=== PATIENT | female | born 1960 | race Caucasian/White ===

== ENCOUNTER 2020-08-29 10:04 | Outpatient (REF) | payer OTHER, SELFPAY | END 2020-08-29 10:05 | disposition home or self-care (01) | LOC: HO.HMGCLDS 10:04 | PROVIDERS: PCP Nurse Practitioner Family; Visit Provider Internal Medicine | DX: Z20.828 Contact with and (suspected) exposure to other viral communicable diseases (principal) | CPT/HCPCS: C9803; U0003 ==

== ENCOUNTER 2021-09-07 07:09 | Outpatient (REF) | payer OTHER, SELFPAY ==
[2021-09-07 07:48] LABS: COVID-19 Test Positive (Negative)
== END 2021-09-07 07:10 | disposition home or self-care (01) ==
LOC: HO.LAB 07:09
PROVIDERS: PCP Nurse Practitioner Family; Visit Provider Internal Medicine
DX: Z20.822 Contact with and (suspected) exposure to COVID-19 (principal)
CPT/HCPCS: 36415; 87635; C9803

== ENCOUNTER 2021-09-27 13:51 | Outpatient (REF) | payer OTHER, SELFPAY ==
--- NOTE | ~2021-09-27 | XR_ITS ---
EXAMINATION: XR CHEST CLINICAL INFORMATION: Dyspnea COMPARISON: None TECHNIQUE: 2 views of the chest were obtained. FINDINGS: The cardiac and mediastinal contours are normal. There are increased linear markings suggestive of scarring or subsegmental atelectasis. This is greatest in the right upper lobe. There is a 0.7 cm nodular density in the right upper lobe. This overlies the right posterior inferior sixth rib. It is uncertain whether this represents a nodule or superimposition of overlapping bony and vascular structures. The lungs are otherwise clear. The lungs appear well inflated. There is no pleural effusion or pneumothorax. There are degenerative changes of the spine. XR/XR chest 2V IMPRESSION: Well-inflated lungs. Increased linear markings suggestive of scarring or subsegmental atelectasis, greatest in the right upper lobe. Question right upper lobe nodule. Imaging follow-up recommended.
== END 2021-09-27 13:52 | disposition home or self-care (01) ==
LOC: HO.HMGCX 13:51
PROVIDERS: Visit Provider Physician Assistant Medical
DX: R06.09 Other forms of dyspnea (principal); U09.9 Post COVID-19 condition, unspecified
CPT/HCPCS: 71046

== ENCOUNTER → 2021-10-31 13:37 | Outpatient (BNVA) | payer OTHER, SELFPAY | PROVIDERS: PCP Nurse Practitioner Family; Visit Provider Hospitalist | DX: U09.9 Post COVID-19 condition, unspecified (principal); R06.09 Other forms of dyspnea; G47.33 Obstructive sleep apnea (adult) (pediatric) | CPT/HCPCS: 99202 ==

== ENCOUNTER 2021-11-11 10:12 | Outpatient (REF) | payer OTHER, SELFPAY ==
--- NOTE | ~2021-11-11 | XR_ITS ---
EXAMINATION: XR KNEE, RIGHT CLINICAL INFORMATION: M25.461 - Effusion, right knee COMPARISON: None TECHNIQUE: Four views of the right knee. FINDINGS: There is small to moderate suprapatellar effusion. Hoffa's fat pad appears normal. There is no fracture, dislocation, or destructive process. There are mild degenerative changes with spurring from the femoral condyles and tibial plateau. No focal joint narrowing or erosive change or chondrocalcinosis. Axial view patella shows no lateralization or tilting. XR/XR knee RT 4V IMPRESSION: 1. Mild to moderate suprapatellar effusion. 2. Marginal osteophytes. No focal joint narrowing or erosive change.
== END 2021-11-11 10:13 | disposition home or self-care (01) ==
LOC: HO.HMGCX 10:12
PROVIDERS: Visit Provider Physician Assistant
DX: M25.461 Effusion, right knee (principal)
CPT/HCPCS: 73564

== ENCOUNTER 2021-11-20 13:47 | Outpatient (REF) | payer OTHER, SELFPAY ==
--- NOTE | 2021-11-20 17:16 | PFT_ITS ---
Forced vital capacity is 82%, FEV1 90%, FEV1/FVC ratio is 85. [id number] is 113%. MVV 89%. All these values are normal. Patient did not want to have bronchodilator challenge. Lung volumes: Total lung capacity 85% and residual volume is 78%. Diffusion capacity 87%. CONCLUSION: The pulmonary function test shows all values within normal limits. No evidence of obstructive or restrictive pulmonary disorder. As noted above. The patient declined to have the bronchodilator challenge. MD HARSHAD Dunne/MODL / [id number] MTDD
== END 2021-11-20 13:48 | disposition home or self-care (01) ==
LOC: HO.RESP 13:47
PROVIDERS: PCP Nurse Practitioner Family; Visit Provider Hospitalist
DX: R06.00 Dyspnea, unspecified (principal)
CPT/HCPCS: 94010; 94727; 94729

== ENCOUNTER 2021-11-23 12:18 | Outpatient (REF) | payer OTHER, SELFPAY ==
--- NOTE | ~2021-11-23 | XR_ITS ---
EXAMINATION: XR KNEE AP STANDING CLINICAL INFORMATION: Pain in knee. COMPARISON: None TECHNIQUE: AP bilateral standing view of the knees was obtained. FINDINGS: There is mild spurring along the medial and lateral compartment right knee. The joint space is maintained normal otherwise. Suspect small loose body along the medial compartment left knee. No acute fracture or dislocation or soft tissue swelling. XR/XR knee standing BI IMPRESSION: Mild degenerative periapical spurring medial and lateral compartment right knee. Suspected loose body along the medial compartment right knee.
== END 2021-11-23 12:19 | disposition home or self-care (01) ==
LOC: HO.HOSX 12:18
PROVIDERS: Visit Provider Orthopaedic Surgery
DX: M17.11 Unilateral primary osteoarthritis, right knee (principal)
CPT/HCPCS: 73565; 99202

== ENCOUNTER 2021-12-11 13:51 | Outpatient (REF) | payer OTHER, SELFPAY ==
--- NOTE | ~2021-12-11 | XR_ITS ---
EXAMINATION: XR CHEST CLINICAL INFORMATION: Follow-up chest for nodular density right suprahilar region overlying posterior medial sixth rib. COMPARISON: Chest radiographs 09/27/2021. TECHNIQUE: 2 views of the chest were obtained. FINDINGS: The subtle density overlying confluence right costochondral junction and right posterior medial sixth rib is similar to prior exam. This may represent artifact from the superimposed bronchovascular markings in thoracic cage. This could be further assessed with apical lordotic view or CT chest noncontrast. The lungs are otherwise clear and there is no airspace consolidation or groundglass opacity or effusion. The heart is normal in size. The vascularity is normal. The hilar and mediastinal contours and bony structures are unremarkable. XR/XR chest 2V IMPRESSION: 1. Right suprahilar nodular density is similar to previous exam. This could represent artifact from superimposed bronchovascular markings and the costochondral junction. Further evaluation could be performed with either apical lordotic view or noncontrast CT chest. 2. Lungs otherwise clear. No infiltrate or effusion.
== END 2021-12-11 13:52 | disposition home or self-care (01) ==
LOC: HO.XRAY 13:51
PROVIDERS: PCP Nurse Practitioner Family; Visit Provider Hospitalist
DX: R06.00 Dyspnea, unspecified (principal); U09.9 Post COVID-19 condition, unspecified; G47.33 Obstructive sleep apnea (adult) (pediatric); Z79.899 Other long term (current) drug therapy
CPT/HCPCS: 71046; 99212

== ENCOUNTER 2021-12-22 09:12 | Outpatient (REF) | payer OTHER, SELFPAY ==
--- NOTE | ~2021-12-22 | XR_ITS ---
EXAMINATION: XR CHEST CLINICAL INFORMATION: Cough COMPARISON: Previous chest x-ray most recent 12/11/2021 TECHNIQUE: 2 views of the chest were obtained. FINDINGS: The cardiac and mediastinal contours are stable. There are increased markings in the right upper lung, greatest in the right suprahilar markings extending to the right first rib. This appears unchanged. The lungs are otherwise clear. There is no pleural effusion or pneumothorax. There are degenerative changes of the spine. XR/XR chest 2V IMPRESSION: Stable increased markings in the right upper lung from previous chest x-rays. Again, this could be better evaluated with chest CT scan if clinically indicated.
[2021-12-22 09:42] LABS: Binax Internal Control QC Valid; Binax Now Covid-19 Ag Negative (Negative)
== END 2021-12-22 09:13 | disposition home or self-care (01) ==
LOC: HO.HMGCX 09:12
PROVIDERS: PCP Nurse Practitioner Family; Visit Provider Physician Assistant Medical
DX: R05.9 Cough, unspecified (principal)
CPT/HCPCS: 71046

== ENCOUNTER 2022-03-18 09:21 | Emergency (ER) | payer OTHER, SELFPAY ==
--- NOTE | ~2022-03-18 | CT_ITS ---
EXAMINATION: CT ABDOMEN AND PELVIS WITHOUT CONTRAST CLINICAL INFORMATION: Right lower quadrant pain. Hematuria. COMPARISON: None TECHNIQUE: Multidetector volumetric imaging was performed from the superior aspect of the liver through the pubic symphysis. Sagittal and coronal reformatted images were obtained on the technologist's workstation. This CT examination was performed using dose optimization techniques as appropriate, variously including the following: *Automated exposure control *Adjustment of mA and/or kV according to patient size (this includes techniques or standardized protocols for targeted exams where dose is matched to indication/reason for exam; i.e. extremities or head) *Use of iterative reconstruction technique DLP: 499 mGy-cm FINDINGS: LUNG BASES: The visualized lung bases are unremarkable. LIVER, GALLBLADDER, AND BILIARY TREE: The liver is low in attenuation suggestive of fatty infiltration.. No focal hepatic lesion or biliary ductal dilatation is present. The gallbladder is unremarkable with no evidence of radiopaque gallstones, gallbladder wall thickening, or obvious pericholecystic inflammatory changes. PANCREAS: Unremarkable. SPLEEN: Unremarkable. ADRENAL GLANDS: Unremarkable. KIDNEYS AND URETERS: There are bilateral renal stones. Largest stone measures 5 mm in the upper pole of the left kidney. There is mild right hydronephrosis and ureteral dilatation from a 3 mm right distal ureteral stone. The more may be a adjacent more proximal right ureteral stones measuring 1 to 2 mm. There is mild stranding of the right perinephric fat. This probably related to obstruction/backflow of urine. Differential would include infection. There are small right renal cysts. No imaging follow-up needed. BLADDER: Unremarkable. GASTROINTESTINAL TRACT: The small and large bowel are unremarkable. The appendix is unremarkable. ABDOMINAL WALL: No significant hernia is appreciated. LYMPH NODES: Normal. VASCULAR: Unremarkable. PELVIC VISCERA: Unremarkable. OSSEOUS STRUCTURES: Unremarkable. CT/CT abdomen pelvis wo con IMPRESSION: Bilateral renal stones. Mild right hydronephrosis and ureteral dilatation from a 3 mm right distal ureteral stone and question 2 mm more proximal right ureteral stone. Mild stranding of the perinephric fat probably due to backflow of urine from obstruction. Differential would include infection. Clinical correlation recommended. Fleischner guidelines were followed.
[2022-03-18 09:33] VITALS: BP 158/95; PULSE 76; RESP 20; TEMP 36.7; O2SAT 100; BMI 25.2
[2022-03-18 10:32] LABS: MANUAL DIFF FLAG NO
[2022-03-18 10:35] LABS: Basophils Percent Auto 0.2 % (0-2); Hematocrit 45.1 % (37.0-47.0); Hemoglobin 14.1 g/dl (12.0-16.0); Imm Gran Abs Auto 0.06 X10*3/uL (0.00-0.03); Imm Gran Pct Auto 0.5 % (0.0-0.4); Lymphocytes Absolute Auto 1.1 X10*3/uL (1.2-4.9); Lymphocytes Percent Auto 9.6 % (20-40); Mean Corpuscular HGB Conc 31.3 g/dl (31.0-35.0); Mean Corpuscular Hemoglobin 27.3 pg (27.0-33.0); Mean Corpuscular Volume 87.2 fL (80.0-98.0); Mean Platelet Volume 11.2 fL (9.4-12.3); Monocytes Absolute Auto 0.2 X10*3/uL (0.1-1.2); Neutrophils Absolute Auto 10.3 x10*3/uL (2.0-8.3); Neutrophils Percent Auto 87.7 % (45-73); Platelet Count 269 X10*3/uL (160-400); Red Blood Count 5.17 X10*6/uL (4.20-5.50); Red Cell Distribution Width 14.2 % (11.0-16.0); White Blood Count 11.7 X10*3/uL (4.8-10.8)
[2022-03-18 10:44] LABS: Appearance Urine CLOUDY; Color Urine RED; Glucose Urine UA NEG (NEG); Leukocyte Esterase Urine NEG (NEG); Nitrite Urine NEG (NEG); Specific Gravity - Urine 1.015 (1.005-1.025); UACC Culture Trigger NO; Urine Blood 3+ (NEG); Urine Ketones NEG (NEG); Urine Protein 1+ MG/DL (NEG-TRACE)
[2022-03-18 10:47] VITALS: BP 139/83; PULSE 68; RESP 18; TEMP 36.8; O2SAT 98
[2022-03-18 10:47] LABS: Anion Gap 12 (12-20); Blood Urea Nitrogen 12 mg/dL (9-16); Calcium 9.6 mg/dL (8.4-10.2); Carbon Dioxide 28 mmol/L (22-29); Chloride 106 mmol/L (96-108); Creatinine Clr Calc Pharmacy 56.6; Estimated Glomerular Filt Rate > 60; Glucose Random 122 mg/dL (60-115); Potassium 5.4 mmol/L (3.3-5.1); Sodium 141 mmol/L (135-145)
[2022-03-18 10:59] LABS: Bacteria Urine TRACE /LPF; RBC Urine TNTC /HPF (0); Squamous Epithelial Cell Urine 1+ /LPF; WBC Urine 0 /HPF (0-4)
--- NOTE | 2022-03-18 11:13 | ECG_ITS ---
Test Reason : urogenital Blood Pressure : / mmHG Vent. Rate : 070 BPM Atrial Rate : 070 BPM P-R Int : 190 ms QRS Dur : 086 ms QT Int : 366 ms P-R-T Axes : 019 000 014 degrees QTc Int : 395 ms Normal sinus rhythm Cannot rule out Anterior infarct , age undetermined Abnormal ECG No previous ECGs available Referred By: Isela Lopez Electronically Signed By:Ronan Gutierrez
--- NOTE | 2022-03-18 11:30 | ED.FEMALEGU ---
HPI - Female Genitourinary General Chief complaint: Urogenital-Female Stated complaint: flank pain Time Seen by Provider: 03/18/22 10:58 Source: patient Mode of arrival: ambulatory Limitations: no limitations History of Present Illness HPI Narrative: Patient presents emergency department for evaluation of right abdominal/flank pain. She reports waking up overnight at 02:00 with pain, attempted to void but was only able to urinate a small amount. She woke up earlier this morning again, was able to void a large amount but continued to have this intermittent pain. Has associated nausea with vomiting x2. She reports that her urine is red in color. Denies fevers, chills, chest pain, shortness of breath, dysuria, urinary frequency/urgency, odorous urine, abnormal vaginal discharge, vaginal bleeding. MD elicited complaint: flank pain and difficulty urinating Onset (ago): hour(s) Location of symptoms: flank Severity: mild Severity scale (1-10): 2 Quality of pain: stabbing Consistency: intermittent Vaginal bleeding: none Urinary symptoms: Difficulty Urinating Exacerbating factors: none Relieving factors: none Associated symptoms: nausea and vomiting Treatment prior to arrival: none Related Data Previous Rx's Medication Instructions Recorded budesonide-formoterol HFA 160 2 puff inhalation BID 30 days 10/31/21 mcg-4.5 mcg/actuation aerosol #10.2 grams inhaler (Symbicort) diclofenac sodium 50 mg 50 mg PO BID PRN pain 14 days #28 11/11/21 tablet,delayed release tabs albuterol sulfate 90 mcg/actuation 2 puff inhalation Q4-6H PRN 12/22/21 aerosol inhaler (Ventolin HFA) shortness of breath or wheezing #8.5 grams azithromycin 250 mg tablet See Rx Instructions PO .COMPLEX #6 12/22/21 tabs benzonatate 100 mg capsule 100 mg PO BID-TID PRN cough #30 12/22/21 caps naproxen 500 mg tablet 500 mg PO BID PRN pain 7 days #14 03/18/22 tabs oxycodone 5 mg capsule 5 mg PO Q8H PRN pain #7 caps 03/18/22 tamsulosin 0.4 mg capsule 0.4 mg PO DAILY #7 caps 03/18/22 Allergies Allergy/AdvReac Type Severity Reaction Status Date / Time No Known Allergies Allergy Verified 12/22/21 08:21 Review of Systems Review of Systems: Constitutional : No Weight loss, No Fever, No Chills ENT/Mouth :? No sore throat, No Rhinorrhea Eyes: No Swelling, No Redness Cardiovascular : No Chest Pain, No SOB, No Edema Respiratory : No Cough, No Sputum, No Wheezing Gastrointestinal : Positive Nausea, Positive Vomiting, no Diarrhea, positive abdominal pain, No Hematochezia, No Melena Genitourinary : No Dysuria, No Urinary Frequency, No Hematuria, No Urgency? Musculoskeletal : No joint pain, No Myalgias, No Joint Swelling Skin : No Skin Lesions, No rash Neuro : No Weakness, No Numbness, No Dizziness, No Headache Psych : No Anxiety/Panic, No Depression Heme/Lymph: No Bruising, No Lymphadenopathy Endocrine : No Polyuria, No Polydipsia Yes all other systems are reviewed and are negative [facility] Past Medical History Attestation statement: The following information was validated with the patient. Source: old records reviewed Medical History Dyspnea KIRSTIN (obstructive sleep apnea) Pulmonary nodule Social History Social History Patient Tobacco Use Status: Never used Tobacco Use of substances other than those prescribed or required for medical reasons: No Any prior treatment program specific to substance use: No Advance Directives: Yes Advance Directives Information Provided: No Advance Directives on File: No Patient : No Current occupational status: employed Current occupation: [employer] Physical Exam Vital Signs: Vital Signs: Last Vital Signs Temp 98.4 F 03/18/22 14:17 Pulse 66 03/18/22 14:17 Resp 16 03/18/22 14:17 BP 126/77 03/18/22 14:17 Pulse Ox 97 03/18/22 14:17 O2 Del Method 03/18/22 14:17 BMI result Body Mass Index 25.2 Vital signs have been reviewed as normal and appeared to be correct. Blood pressure normal.? Heart rate normal.? Respiration rate normal. Temperature normal.? Oxygen saturation normal. Appearance: Alert.?Oriented to person, place and time. No acute distress.?Normal affect. Eyes: Pupils equal, round and reactive to light.? ENT: Pharynx normal.?? Neck: Normal inspection.? Neck supple.?? CVS: Heart sounds normal. Normal heart rate and rhythm.? Pulses normal.?? Respiratory: No respiratory distress.? Lung sounds clear to auscultation bilaterally?? Abdomen: Soft and non-tender. Normoactive bowel sounds. Mild right CVA tenderness. Rovsing sign negative, obturator's sign negative, psoas sign negative, no rebound tenderness. ? Skin: Skin warm and dry.? Normal skin color.? ? Extremities: No lower extremity edema.? Neuro: Moves all extremities spontaneously. Sensation intact bilaterally. No motor deficits. Ambulates with normal steady gait. Course Course Course Narrative: Patient is a 61-year-old female with a past medical history of pulmonary nodule, KIRSTIN, osteoarthritis presented to emergency department for evaluation of right flank pain with associated nausea and vomiting. At this time flank pain has overall improved, currently 2/10, was more severe earlier today. Difficulty voiding has subsided, she does however have hematuria. Will obtain CBC, CMP, urinalysis, CT of the abdomen and pelvis to exclude nephrolithiasis/hydronephrosis, or additional intra-abdominal pathology as a source for pain. Reevaluation(s) Reevaluation #1: CBC reveals a mild leukocytosis, 11.7 BMP is overall unremarkable, however noted hyperkalemia 5.4, not secondary to any medications, will administer 1 L normal saline IV, and repeat. EKG reveals no acute changes consistent with hyperkalemia, normal sinus rhythm. Urinalysis with hematuria no signs of infection. CT of the abdomen reveals bilateral renal stones with mild right hydronephrosis and ureteral dilation from 3mm distal ureteral stone and possible 2mm proximal stone. Time: 14:28 Reevaluation #2: Hyperkalemia resolved. Discussed plan of care for discharge home, outpatient follow-up with Urology, tamsulosin daily, naproxen twice daily as needed for pain, oxycodone for severe unrelieved pain with naproxen, discussed reasons that she should return back to the emergency department, patient verbalized understanding. She was discharged home in stable condition. Time: 17:10 [facility] - Female Genitourinary Medical Records Attestation: I reviewed the patient's medical records. Lab Data Attestation: I reviewed the patient's lab results. Result diagrams: 03/18/22 10:27 03/18/22 16:42 Labs: Lab Results 03/18/22 03/18/22 03/18/22 Range/Units 10: 10:27 10:27 WBC 11.7 H (4.8-10.8) X10*3/uL RBC 5.17 (4.20-5.50) X10*6/uL Hgb 14.1 (12.0-16.0) g/dl Hct 45.1 (37.0-47.0) % MCV 87.2 (80.0-98.0) fL MCH 27.3 (27.0-33.0) pg MCHC 31.3 (31.0-35.0) g/dl RDW 14.2 (11.0-16.0) % Plt Count 269 (160-400) X10*3/uL MPV 11.2 (9.4-12.3) fL Immature Gran % (Auto) 0.5 H (0.0-0.4) % Neut % (Auto) 87.7 H (45-73) % Lymph % (Auto) 9.6 L (20-40) % [place] % (Auto) 2.0 (2-11) % Eos % (Auto) 0.0 (0-4) % Baso % (Auto) 0.2 (0-2) % Lymph # (Auto) 1.1 L (1.2-4.9) X10*3/uL [place] # (Auto) 0.2 (0.1-1.2) X10*3/uL Eos # (Auto) 0.0 (0.0-0.4) X10*3/uL Baso # (Auto) 0.0 (0.0-0.2) X10*3/uL Abs Immat Gran (auto) 0.06 H (0.00-0.03) X10*3/uL Absolute Neuts (auto) 10.3 H (2.0-8.3) x10*3/uL Absolute Nucleated RBC 0.000 (0.0-0.012) X10*3/uL Nucleated RBC % (auto) 0.0 (0.0-0.2) /100WBC Sodium 141 (135-145) mmol/L Potassium 5.4 H (3.3-5.1) mmol/L Chloride 106 (96-108) mmol/L Carbon Dioxide 28 (22-29) mmol/L Anion Gap 12 (12-20) BUN 12 (9-16) mg/dL Creatinine 0.80 (0.5-1.4) mg/dL Estim Creat Clear Calc 56.6 Estimated GFR > 60 Random Glucose 122 H (60-115) mg/dL Calcium 9.6 (8.4-10.2) mg/dL Urine Color RED A Urine Appearance CLOUDY Urine pH 8.0 (5.0-8.0) Ur Specific [place] 1.015 (1.005-1.025) Urine Protein 1+ H (NEG-TRACE) MG/DL Urine Glucose (UA) NEG (NEG) MG/DL Urine Ketones NEG (NEG) MG/DL Urine Blood 3+ H (NEG) Urine Nitrite NEG (NEG) Ur Leukocyte Esterase NEG (NEG) Urine RBC TNTC H (0) /HPF Urine WBC 0 (0-4) /HPF Ur Squamous Epith Cells 1+ /LPF Urine Bacteria TRACE /LPF 03/18/22 Range/Units 16:42 WBC (4.8-10.8) X10*3/uL RBC (4.20-5.50) X10*6/uL Hgb (12.0-16.0) g/dl Hct (37.0-47.0) % MCV (80.0-98.0) fL MCH (27.0-33.0) pg MCHC (31.0-35.0) g/dl RDW (11.0-16.0) % Plt Count (160-400) X10*3/uL MPV (9.4-12.3) fL Immature Gran % (Auto) (0.0-0.4) % Neut % (Auto) (45-73) % Lymph % (Auto) (20-40) % [place] % (Auto) (2-11) % Eos % (Auto) (0-4) % Baso % (Auto) (0-2) % Lymph # (Auto) (1.2-4.9) X10*3/uL [place] # (Auto) (0.1-1.2) X10*3/uL Eos # (Auto) (0.0-0.4) X10*3/uL Baso # (Auto) (0.0-0.2) X10*3/uL Abs Immat Gran (auto) (0.00-0.03) X10*3/uL Absolute Neuts (auto) (2.0-8.3) x10*3/uL Absolute Nucleated RBC (0.0-0.012) X10*3/uL Nucleated RBC % (auto) (0.0-0.2) /100WBC Sodium (135-145) mmol/L Potassium 3.9 D (3.3-5.1) mmol/L Chloride (96-108) mmol/L Carbon Dioxide (22-29) mmol/L Anion Gap (12-20) BUN (9-16) mg/dL Creatinine (0.5-1.4) mg/dL Estim Creat Clear Calc Estimated GFR Random Glucose (60-115) mg/dL Calcium (8.4-10.2) mg/dL Urine Color Urine Appearance Urine pH (5.0-8.0) Ur Specific [place] (1.005-1.025) Urine Protein (NEG-TRACE) MG/DL Urine Glucose (UA) (NEG) MG/DL Urine Ketones (NEG) MG/DL Urine Blood (NEG) Urine Nitrite (NEG) Ur Leukocyte Esterase (NEG) Urine RBC (0) /HPF Urine WBC (0-4) /HPF Ur Squamous Epith Cells /LPF Urine Bacteria /LPF Imaging Data CT scan - abdomen: Radiologist's impression: CT/CT abdomen pelvis wo con IMPRESSION: Bilateral renal stones. Mild right hydronephrosis and ureteral dilatation from a 3 mm right distal ureteral stone and question 2 mm more proximal right ureteral stone. Mild stranding of the perinephric fat probably due to backflow of urine from obstruction. Differential would include infection. Clinical correlation recommended. ECG Data Attestation: I personally reviewed and interpreted this ECG as follows: ECG interpretation date: 03/18/22 Prior ECG tracings: not available for review Interpretation: Rate: 70 Rhythm:? Normal sinus rhythm [place]:? Normal Normal P waves.? Normal EUNICE.?? Normal QRS complex.?? ST T wave :??No ST elevation, no ST depression. qTC: 395 prior studies:? None available for review The study has been interpreted contemporaneously by me. Discharge Plan Discharge Clinical Impression: Nephrolithiasis, Renal colic Patient Disposition: Home, Self-Care Instructions: Kidney Stones (ED), Renal Colic (ED), How to Strain Your Urine (ED) Additional Instructions: The CT of your abdomen reveals kidney stones. Pain that you are experiencing and the blood in your urine is most consistent with passage of a kidney stones. Based on the CT scan there are stones in the ureter, there of an appropriate size that he should be able to pass them on your own. You have been given a prescription for tamsulosin to take once daily, and naproxen to take twice daily for pain. This is an NSAID, you should not take additional lpal-bhc-cujawfz medications such as ibuprofen/Motrin, Aleve, or aspirin while taking this medication. If the naproxen is not alleviating her pain you may try using oxycodone, this is an opiate/narcotic, it may be addictive, it may make you very drowsy, you should not drive drink alcohol for at least 8 hours after taking this medication. Please be sure to stay well hydrated, drink plenty of fluids, strain all urine. Please contact the urologist office tomorrow to schedule a follow-up appointment within 5 days. You may return to emergency department any new or worsening symptoms or concerns. Prescriptions: New naproxen 500 mg tablet 500 mg PO BID PRN (Reason: pain) 7 Days Qty: 14 0RF oxycodone 5 mg capsule 5 mg PO Q8H PRN (Reason: pain) Qty: 7 0RF Rx Instructions: Partial Fill upon patient request. tamsulosin 0.4 mg capsule 0.4 mg PO DAILY Qty: 7 0RF No Action diclofenac sodium 50 mg tablet,delayed release (DR/EC) 50 mg PO BID PRN (Reason: pain) 14 Days Qty: 28 0RF benzonatate 100 mg capsule 100 mg PO BID-TID PRN (Reason: cough) Qty: 30 0RF azithromycin 250 mg tablet See Rx Instructions PO .COMPLEX Qty: 6 0RF Rx Instructions: take 500 mg today (day 1), then 250 mg for 4 days (days 2-5) PO albuterol sulfate [Ventolin HFA] 90 mcg/actuation HFA aerosol inhaler 2 puff inhalation Q4-6H PRN (Reason: shortness of breath or wheezing) Qty: 8.5 0RF budesonide-formoterol [Symbicort] 160-4.5 mcg/actuation HFA aerosol inhaler 2 puff inhalation BID 30 Days Qty: 10.2 11RF Referrals: Dylan Kerns MD [Physician] - 5 days Interventions: ED Discharge Assessment Last Done: 03/18/22 17:19
[2022-03-18 12:10] VITALS: BP 128/86; PULSE 67; RESP 16; TEMP 36.9; O2SAT 97
[2022-03-18 14:17] VITALS: BP 126/77; PULSE 66; RESP 16; TEMP 36.9; O2SAT 97
[2022-03-18] MEDS: 0.9 % Sodium Chloride 1,000 ML 999 ML IV (14:53)
[2022-03-18 16:57] LABS: Potassium 3.9 mmol/L (3.3-5.1)
== END 2022-03-18 17:19 | disposition home or self-care (01) ==
PROVIDERS: Nurse Practitioner Family; Emergency Provider Emergency Medicine; PCP Nurse Practitioner Family
DX: N13.2 Hydronephrosis with renal and ureteral calculous obstruction (principal); E87.5 Hyperkalemia
CPT/HCPCS: 36415; 74176; 80048; 81001; 84132; 85025; 93005; 96360; 99284; 99285

== ENCOUNTER 2022-03-21 08:29 | Outpatient (REF) | payer OTHER, SELFPAY ==
[2022-03-21 10:58] LABS: MANUAL DIFF FLAG NO
[2022-03-21 11:05] LABS: Basophils Absolute Auto 0.1 X10*3/uL (0.0-0.2); Basophils Percent Auto 0.8 % (0-2); Eosinophils Absolute Auto 0.1 X10*3/uL (0.0-0.4); Eosinophils Percent Auto 0.8 % (0-4); Hematocrit 42.5 % (37.0-47.0); Hemoglobin 13.3 g/dl (12.0-16.0); Imm Gran Abs Auto 0.02 X10*3/uL (0.00-0.03); Imm Gran Pct Auto 0.3 % (0.0-0.4); Lymphocytes Absolute Auto 2.8 X10*3/uL (1.2-4.9); Lymphocytes Percent Auto 39.7 % (20-40); Mean Corpuscular HGB Conc 31.3 g/dl (31.0-35.0); Mean Corpuscular Hemoglobin 27.7 pg (27.0-33.0); Mean Corpuscular Volume 88.4 fL (80.0-98.0); Mean Platelet Volume 12.1 fL (9.4-12.3); Monocytes Absolute Auto 0.5 X10*3/uL (0.1-1.2); Monocytes Percent Auto 6.4 % (2-11); Neutrophils Absolute Auto 3.7 x10*3/uL (2.0-8.3); Platelet Count 263 X10*3/uL (160-400); Red Blood Count 4.81 X10*6/uL (4.20-5.50); Red Cell Distribution Width 14.5 % (11.0-16.0); White Blood Count 7.1 X10*3/uL (4.8-10.8)
[2022-03-21 11:19] LABS: Alanine Aminotransferase 22 U/L (0-31); Albumin Level 4.2 g/dL (3.5-5.0); Alkaline Phosphatase 78 U/L (39-117); Anion Gap 11 (12-20); Aspartate Amino Transferase 17 U/L (5-31); Bilirubin Total 0.3 mg/dL (0.0-1.0); Blood Urea Nitrogen 15 mg/dL (9-16); Calcium 9.6 mg/dL (8.4-10.2); Carbon Dioxide 28 mmol/L (22-29); Chloride 107 mmol/L (96-108); Cholesterol 254 mg/dL; Estimated Glomerular Filt Rate > 60; Glucose Fasting 97 mg/dL (60-99); HDL Cholesterol 50 mg/dL; LDL Cholesterol Calculated 178 mg/dl; Sodium 142 mmol/L (135-145); Total Protein 7.3 g/dL (6.5-8.0); Triglycerides 133 mg/dL
[2022-03-21 11:32] LABS: Appearance Urine CLOUDY; Color Urine YELLOW; Glucose Urine UA NEG (NEG); Leukocyte Esterase Urine 1+ (NEG); Nitrite Urine NEG (NEG); Specific Gravity - Urine 1.025 (1.005-1.025); UACC Culture Trigger YES; Urine Blood 3+ (NEG); Urine Ketones NEG (NEG); Urine Protein NEG (NEG-TRACE)
[2022-03-21 11:42] LABS: Vitamin D 25-OH Total 47.8 ng/mL (>30)
[2022-03-21 11:49] LABS: Squamous Epithelial Cell Urine 1+ /LPF
[2022-03-21 11:50] LABS: Bacteria Urine TRACE /LPF; Calcium Oxalate Crystals Urine 1+ /LPF; Mucus Urine 1+ /LPF
== END 2022-03-21 08:30 | disposition home or self-care (01) ==
LOC: HO.HMGCLDS 08:29
PROVIDERS: PCP Nurse Practitioner Family; Visit Provider Nurse Practitioner Family
DX: Z00.00 Encounter for general adult medical examination without abnormal findings (principal); Z78.0 Asymptomatic menopausal state
CPT/HCPCS: 36415; 80053; 80061; 81001; 82306; 84443; 85025; 87086

== ENCOUNTER 2022-03-30 14:41 | Outpatient (REF) | payer OTHER, SELFPAY ==
--- NOTE | ~2022-03-30 | MM_ITS ---
EXAMINATION: MM SCREENING DIGITAL BREAST TOMOSYNTHESIS, BILATERAL CLINICAL INFORMATION: Screening. Asymptomatic. The lifetime risk of breast cancer based on the Tyrer-Cuzick Model is 14%. COMPARISON: Outside mammography: 11/30/2017, 11/16/2016, 08/27/2015 ([place]). TECHNIQUE: Digital breast tomosynthesis is performed in both the craniocaudal and mediolateral oblique views along with computer-aided detection (CAD). Synthesized 2D images are generated from the tomosynthesis. FINDINGS: The breasts are almost entirely fatty (ACR BI-RADS breast composition Category a). Background stromal markings are stable. No developing density. The axilla and skin contours are unremarkable. There are no significant masses, abnormal calcifications, or other abnormalities. MM/MM tomosynthesis screening BI IMPRESSION: No mammographic evidence of malignancy. ASSESSMENT: BI-RADS 1: Negative RECOMMENDATION: Routine annual mammography screening. This patient's information was entered into a reminder system with a target due date for their next mammogram.
--- NOTE | ~2022-03-30 | MM_ITS ---
EXAMINATION: BONE DENSITOMETRY CLINICAL INDICATION: Menopause. COMPARISON: This is the patient's baseline examination. TECHNIQUE: Using a [employer] DXA System (software version: 13.1) manufactured by [employer], dual-energy x-ray absorptiometry was performed of the lumbar spine and left hip. The images are of good technical quality. Summary results are attached. FINDINGS: AP SPINE L1-L4: BMD 1.082 g/cm2, Z-score 0.5, T-score -0.8, normal. LEFT FEMUR, NECK: BMD 0.747 g/cm2, Z-score -0.8, T-score -2.1, osteopenia. LEFT FEMUR, TOTAL: BMD 0.939 g/cm2, Z-score 0.5, T-score -0.5, normal. IDENTIFIED RISK FACTORS: Early menopause, secondary osteoporosis. HISTORY OF FRACTURE: None listed. MEDICATIONS: Vitamin D. MM/XR DEXA axial skeleton IMPRESSION: 1. DIAGNOSIS: Osteopenia based on the lowest T-score value of -2.1 in the femoral neck applying World Health Organization criteria. 2. 10-YEAR FRACTURE RISK PREDICTION, FRAX: Major osteoporotic fracture (clinical spine, forearm, hip or shoulder) 10.2%. Hip fracture 1.4%. 3. Treatment Recommendations: NOF guidelines recommend consideration for treatment in postmenopausal women and men age 50 and older presenting with the following: -A hip or vertebral (clinical or morphometric) fracture. -T-score less than or equal to -2.5 at the femoral neck or spine after appropriate evaluation to exclude secondary causes. -Low bone mass at the hip or spine and a 10-year fracture probability by FRAX of greater than or equal to 3% for hip fracture or greater than or equal to 20% for major osteoporotic fracture based on the [place] adapted WHO algorithm. 4. Other Recommendations: All treatment decisions require clinical judgment and consideration of individual patient factors, including patient preferences, comorbidities, previous drug use, risk factors not captured in the FRAX model (e.g. frailty, falls, vitamin D deficiency, increased bone turnover, interval significant decline in bone density) and possible under or overestimation of fracture risk by FRAX. Additional medical evaluation for secondary cause of low bone mineral density may be appropriate. FUTURE SCAN RECOMMENDATION: People with diagnosed cases of osteoporosis or at high risk for fracture should have regular bone mineral density tests. For patients eligible for Medicare, routine testing is allowed once every 2 years. The testing frequency can be increased to one year for patients who have rapidly progressing disease, those who are receiving or discontinuing medical therapy to restore bone mass, or have additional risk factors.
== END 2022-03-30 14:42 | disposition home or self-care (01) ==
LOC: HO.MAMMO 14:41
PROVIDERS: Visit Provider Nurse Practitioner Family
DX: Z12.31 Encounter for screening mammogram for malignant neoplasm of breast (principal); Z13.820 Encounter for screening for osteoporosis; Z78.0 Asymptomatic menopausal state
CPT/HCPCS: 77063; 77067; 77080

== ENCOUNTER → 2022-05-08 10:47 | Outpatient (BNVA) | payer OTHER, SELFPAY | PROVIDERS: PCP Nurse Practitioner Family | DX: N20.0 Calculus of kidney (principal) | CPT/HCPCS: 99202 ==

== ENCOUNTER 2022-05-28 08:48 | Outpatient (REF) | payer OTHER, SELFPAY ==
[2022-05-28 11:19] LABS: MANUAL DIFF FLAG NO
[2022-05-28 11:36] LABS: Basophils Percent Auto 0.6 % (0-2); Eosinophils Absolute Auto 0.1 X10*3/uL (0.0-0.4); Eosinophils Percent Auto 1.2 % (0-4); Hematocrit 41.2 % (37.0-47.0); Imm Gran Abs Auto 0.02 X10*3/uL (0.00-0.03); Imm Gran Pct Auto 0.3 % (0.0-0.4); Lymphocytes Absolute Auto 2.4 X10*3/uL (1.2-4.9); Lymphocytes Percent Auto 37.6 % (20-40); Mean Corpuscular HGB Conc 31.6 g/dl (31.0-35.0); Mean Corpuscular Volume 88.6 fL (80.0-98.0); Mean Platelet Volume 12.2 fL (9.4-12.3); Monocytes Absolute Auto 0.5 X10*3/uL (0.1-1.2); Neutrophils Absolute Auto 3.4 x10*3/uL (2.0-8.3); Neutrophils Percent Auto 53.3 % (45-73); Platelet Count 234 X10*3/uL (160-400); Red Blood Count 4.65 X10*6/uL (4.20-5.50); Red Cell Distribution Width 14.1 % (11.0-16.0); White Blood Count 6.5 X10*3/uL (4.8-10.8)
[2022-05-28 11:38] LABS: Appearance Urine Cloudy; Color Urine Yellow; Glucose Urine UA Negative (Negative); Leukocyte Esterase Urine Trace (Negative); Nitrite Urine Negative (Negative); Urine Blood Negative (Negative); Urine Ketones Negative (Negative); Urine Protein Negative (Neg-Trace)
[2022-05-28 11:42] LABS: Bacteria Urine 2+ (None Seen); Hyaline Casts Urine 0-2 /LPF (0-2); RBC Urine 0-2 /HPF (0-2); UACC Culture Trigger YES
[2022-05-28 11:57] LABS: Alanine Aminotransferase 28 U/L (0-31); Alkaline Phosphatase 78 U/L (39-117); Anion Gap 13 (12-20); Aspartate Amino Transferase 19 U/L (5-31); Bilirubin Total 0.4 mg/dL (0.0-1.0); Blood Urea Nitrogen 15 mg/dL (9-16); Calcium 8.9 mg/dL (8.4-10.2); Carbon Dioxide 27 mmol/L (22-29); Chloride 106 mmol/L (96-108); Cholesterol 251 mg/dL; Estimated Glomerular Filt Rate > 60; Glucose Fasting 97 mg/dL (60-99); HDL Cholesterol 48 mg/dL; LDL Cholesterol Calculated 164 mg/dl; Potassium 4.2 mmol/L (3.3-5.1); Sodium 142 mmol/L (135-145); Total Protein 6.9 g/dL (6.5-8.0); Triglycerides 196 mg/dL
[2022-05-28 12:19] LABS: TSH reflex Free T4 1.69 uIU/mL (0.32-4.0)
[2022-05-30 22:52] LABS: TS Negative Control Passed; TS Panel A 1; TS Panel B 2; TS Positive Control Passed; TSpotTB Negative (Negative)
== END 2022-05-28 08:49 | disposition home or self-care (01) ==
LOC: HO.HMGCLDS 08:48
PROVIDERS: PCP Nurse Practitioner Family; Visit Provider Nurse Practitioner Family
DX: E78.5 Hyperlipidemia, unspecified (principal); N20.0 Calculus of kidney; Z11.1 Encounter for screening for respiratory tuberculosis
CPT/HCPCS: 36415; 80053; 80061; 81001; 84443; 85025; 86481; 87086

== ENCOUNTER 2022-07-19 09:43 | Outpatient (REF) | payer OTHER, SELFPAY ==
[2022-07-19 15:56] LABS: CT PCR NOT DETECTED (Not Detect.); NG PCR NOT DETECTED (Not Detect.)
== END 2022-07-19 09:44 | disposition home or self-care (01) ==
LOC: HO.LNP 09:43
PROVIDERS: Visit Provider Advanced Practice Midwife
DX: Z11.3 Encounter for screening for infections with a predominantly sexual mode of transmission (principal)
CPT/HCPCS: 87491; 87591

== ENCOUNTER 2022-08-24 11:45 | Outpatient (REF) | payer OTHER, SELFPAY ==
--- NOTE | ~2022-08-24 | US_ITS ---
EXAMINATION: US RETROPERITONEAL LIMITED (RENAL ONLY) CLINICAL INFORMATION: Calculus of kidney. COMPARISON: CT abdomen and pelvis 03/18/2022. TECHNIQUE: Real-time imaging of the kidneys. FINDINGS: RIGHT KIDNEY: 10.6 x 4.7 x 5.5 cm (SAG x AP x TRV). The kidney is normal in size, contour, and echogenicity. Renal cortical thickness is normal. No hydronephrosis. At the upper pole, a 3 mm nonobstructing calculus is seen. At the interpolar aspect, 2 mm and 7 mm nonobstructing calculi are seen. At the lower pole, 4 mm and 4 mm nonobstructing calculi are seen. At the interpolar aspect, an 8 mm simple cyst is seen. At the lower pole, 1.9 x 1.4 x 1.6 cm and 0.6 x 0.8 x 0.6 cm mildly complex cysts are seen, with fine septations. These show no mural nodularity or associated color Doppler flow. LEFT KIDNEY: 10.7 x 4.7 x 5.4 cm (SAG x AP x TRV). The kidney is normal in size, contour, and echogenicity. Renal cortical thickness is normal. No hydronephrosis. At the interpolar aspect, 3 mm and 3 mm nonobstructing calculi are seen. At the lower pole, 3 mm and 5 mm nonobstructing calculi are seen. At the lower pole, a 7 mm in maximal diameter anechoic, simple cyst is seen. US/US renal BI IMPRESSION: 1. There are multiple nonobstructing bilateral renal calculi, as detailed. No hydronephrosis is seen bilaterally. 2. There are bilateral renal cysts, 2 at the lower pole of the right kidney mildly complex, with fine septations. If relevant to patient management, these can be further evaluated with CT (renal mass protocol, with intravenous contrast).
== END 2022-08-24 11:46 | disposition home or self-care (01) ==
LOC: HO.HMGCX 11:45
PROVIDERS: PCP Nurse Practitioner Family
DX: N20.0 Calculus of kidney (principal)
CPT/HCPCS: 76775

== ENCOUNTER 2022-08-25 06:51 | Outpatient (REF) | payer OTHER, SELFPAY ==
[2022-08-25 11:32] LABS: Alanine Aminotransferase 31 U/L (0-31); Albumin Level 4.1 g/dL (3.5-5.0); Alkaline Phosphatase 87 U/L (39-117); Anion Gap 14 (12-20); Aspartate Amino Transferase 22 U/L (5-31); Bilirubin Total 0.3 mg/dL (0.0-1.0); Blood Urea Nitrogen 13 mg/dL (9-16); Calcium 8.9 mg/dL (8.4-10.2); Carbon Dioxide 27 mmol/L (22-29); Chloride 106 mmol/L (96-108); Cholesterol 268 mg/dL; Estimated Glomerular Filt Rate > 60; Glucose Fasting 102 mg/dL (60-99); HDL Cholesterol 51 mg/dL; LDL Cholesterol Calculated 196 mg/dl; Potassium 4.1 mmol/L (3.3-5.1); Sodium 143 mmol/L (135-145); Total Protein 7.2 g/dL (6.5-8.0); Triglycerides 107 mg/dL
[2022-08-27 05:15] LABS: HBS Num1 154.42 mIU/mL (0-7.99); HBsAGNum1 0.25 S/CO (0.00-0.99); Hepatitis B Core Antibody Nonreactive (Nonreactive); Hepatitis B Surface Antigen Negative (Negative); ~HepC Num1 0.68 S/CO (0.00-0.79); ~Hepatitis B Surface Antibody REACTIVE (Nonreactive); ~Hepatitis C Antibody Nonreactive (Nonreactive)
[2022-08-27 21:16] LABS: Rubeola IgG (Measles) <13.50 AU/mL
[2022-08-29 04:48] LABS: Hepatitis A Antibody IgM 0.15 Index (0-0.79); ~Hepatitis A Antibody IgM Nonreactive (Nonreactive)
== END 2022-08-25 06:52 | disposition home or self-care (01) ==
LOC: HO.HMGCLDS 06:51
PROVIDERS: PCP Nurse Practitioner Family; Visit Provider Nurse Practitioner Family
DX: Z01.84 Encounter for antibody response examination (principal); E78.5 Hyperlipidemia, unspecified; Z28.39 Other underimmunization status
CPT/HCPCS: 36415; 80053; 80061; 86704; 86706; 86709; 86735; 86762; 86765; 86787; 86803; 87340

== ENCOUNTER 2023-03-26 07:15 | Outpatient (REF) | payer OTHER, SELFPAY ==
[2023-03-26 12:24] LABS: Alanine Aminotransferase 27 U/L (0-31); Albumin Level 3.9 g/dL (3.5-5.0); Alkaline Phosphatase 75 U/L (39-117); Anion Gap 11 (12-20); Aspartate Amino Transferase 21 U/L (5-31); Bilirubin Total 0.5 mg/dL (0.0-1.0); Blood Urea Nitrogen 16 mg/dL (9-16); Calcium 9.2 mg/dL (8.4-10.2); Carbon Dioxide 29 mmol/L (22-29); Chloride 105 mmol/L (96-108); Cholesterol 244 mg/dL; Estimated Glomerular Filt Rate > 60; Glucose Fasting 96 mg/dL (60-99); HDL Cholesterol 44 mg/dL; LDL Cholesterol Calculated 162 mg/dl; Potassium 4.1 mmol/L (3.3-5.1); Sodium 141 mmol/L (135-145); Total Protein 7.2 g/dL (6.5-8.0); Triglycerides 191 mg/dL
[2023-03-28 15:28] LABS: TS Negative Control Passed; TS Panel A 2; TS Panel B 2; TS Positive Control Passed; TSpotTB Negative (Negative)
== END 2023-03-26 07:16 | disposition home or self-care (01) ==
LOC: HO.HMGCLDS 07:15
PROVIDERS: PCP Nurse Practitioner Family; Visit Provider Nurse Practitioner Family
DX: Z11.1 Encounter for screening for respiratory tuberculosis (principal); E78.5 Hyperlipidemia, unspecified; Z28.39 Other underimmunization status
CPT/HCPCS: 36415; 80053; 80061; 86481

== ENCOUNTER 2023-04-04 11:56 | Outpatient (REF) | payer OTHER, SELFPAY ==
--- NOTE | ~2023-04-04 | MM_ITS ---
EXAMINATION: MM SCREENING DIGITAL BREAST TOMOSYNTHESIS, BILATERAL CLINICAL INFORMATION: Screening. Asymptomatic. The lifetime risk of breast cancer based on the Tyrer-Cuzick Model is 13.1%. COMPARISON: Mammography: This study is compared with the prior mammograms dating back to 2017. TECHNIQUE: Digital breast tomosynthesis is performed in both the craniocaudal and mediolateral oblique views along with computer-aided detection (CAD). Synthesized 2D images are generated from the tomosynthesis. FINDINGS: The breasts are almost entirely fatty (ACR BI-RADS breast composition Category a). There are no significant masses, abnormal calcifications, or other abnormalities. MM/MM tomosynthesis screening BI IMPRESSION: No mammographic evidence of malignancy. ASSESSMENT: BI-RADS BI-RADS 1 - Negative RECOMMENDATION: Routine annual mammography screening. 1 year F/U This patient's information was entered into a reminder system with a target due date for their next mammogram.
== END 2023-04-04 11:57 | disposition home or self-care (01) ==
LOC: HO.MAMMO 11:56
PROVIDERS: PCP Nurse Practitioner Family; Visit Provider Nurse Practitioner Family
DX: Z12.31 Encounter for screening mammogram for malignant neoplasm of breast (principal)
CPT/HCPCS: 77063; 77067

== ENCOUNTER → 2023-04-04 12:00 | Outpatient (BNV) | payer OTHER, SELFPAY | PROVIDERS: PCP Nurse Practitioner Family; Visit Provider Radiology Diagnostic Radiology | DX: Z12.31 Encounter for screening mammogram for malignant neoplasm of breast (principal) | CPT/HCPCS: 77063; 77067 ==

== ENCOUNTER 2023-04-22 14:45 | Outpatient (AMB) | payer OTHER, SELFPAY ==
--- NOTE | 2023-04-22 15:03 | AM.OFFWIN_ITS ---
Intake Vital Signs 04/22/23 15:04 Height 4 ft 11 in BP 122/78 Blood Pressure Location Lt brachial Position Sitting Pulse 78 Pulse Source Pulse Oximeter Temp 98.0 F Temp Source Temporal Artery Scan Pulse Oximetry (%) 98 Intake Visit Reasons: EP, Insect Bite Intake Note: pt is here for c/o possible insect bite on chest Patient Tobacco Use Status: Never used Tobacco Allergies No Known Allergies Allergy (Verified 04/22/23 15:03) Medication List - Last Reconciled 04/26/23 by Mo Kowalski MD albuterol sulfate 90 mcg/actuation (Ventolin HFA) 2 puffs inhalation Q4-6H PRN budesonide-formoterol 160-4.5 mcg/actuation (Symbicort) 2 puffs inhalation BID 30 days calcium carbonate-vitamin D3 600 mg-10 mcg (400 unit) (Calcium 600 with Vitamin D3) 1 tab PO BID 30 days hydrocortisone 2.5% 1 appl topical BID PRN ketoconazole 2% 1 appl topical DAILY prednisone 60 mg (3 x 20 mg) PO DAILY rosuvastatin 40 mg PO DAILY valacyclovir 2,000 mg (2 x 1 gram) PO ONCE PRN 1 day Do you need a note to return to daycare/school/sports/work: No HPI EP, Insect Bite HPI Details 62-year-old female presents to the office for a sick visit. Patient has a rash on the chest. She believes she was bitten by an insect. Dalal swelling and pain. [facility] Medical History Dyspnea KIRSTIN (obstructive sleep apnea) Pulmonary nodule Renal calculi Surgical History H/O breast biopsy Family History Daughter No problems noted. 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 Assessment & Plan Assessment & Plan (1) Insect bite (nonvenomous) of abdominal wall, initial encounter: Code(s): S30.861A - Insect bite (nonvenomous) of abdominal wall, initial encounter; W57.XXXA - Bitten or stung by nonvenomous insect and other nonvenomous arthropods, initial encounter Plan: Prednisone called in. Apply cortisone cream. If symptoms do not improve to follow-up here. Medications: New prednisone 60 mg (3 x 20 mg) PO DAILY 9 tabs 0RF hydrocortisone 2.5% 1 appl topical BID PRN 20 grams 0RF skin irritation Coding Level of Care Code Est Pt Level 3 (16069) Diagnoses Insect bite (nonvenomous) of abdominal wall, initial encounter S30.861A; W57.XXXA
[2023-04-22 15:04] VITALS: BP 122/78; PULSE 78; TEMP 36.7; O2SAT 98
== END 2023-04-22 16:11 | disposition home or self-care (01) ==
PROVIDERS: PCP Nurse Practitioner Family; Visit Provider Internal Medicine
DX: S30.861A Insect bite (nonvenomous) of abdominal wall, initial encounter (principal); W57.XXXA Bitten or stung by nonvenomous insect and other nonvenomous arthropods, initial encounter
CPT/HCPCS: 99213

== ENCOUNTER 2023-06-27 07:16 | Outpatient (REF) | payer OTHER, SELFPAY ==
[2023-06-27 11:40] LABS: MANUAL DIFF FLAG NO
[2023-06-27 11:48] LABS: Basophils Percent Auto 0.6 % (0-2); Eosinophils Absolute Auto 0.1 X10*3/uL (0.0-0.4); Eosinophils Percent Auto 1.3 % (0-4); Hematocrit 44.5 % (37.0-47.0); Hemoglobin 13.8 g/dl (12.0-16.0); Imm Gran Abs Auto 0.01 X10*3/uL (0.00-0.03); Imm Gran Pct Auto 0.1 % (0.0-0.4); Lymphocytes Absolute Auto 3.4 X10*3/uL (1.2-4.9); Lymphocytes Percent Auto 47.1 % (20-40); Mean Corpuscular Hemoglobin 27.3 pg (27.0-33.0); Mean Corpuscular Volume 88.1 fL (80.0-98.0); Mean Platelet Volume 12.1 fL (9.4-12.3); Monocytes Absolute Auto 0.4 X10*3/uL (0.1-1.2); Neutrophils Absolute Auto 3.2 x10*3/uL (2.0-8.3); Neutrophils Percent Auto 44.9 % (45-73); Platelet Count 266 X10*3/uL (160-400); Red Blood Count 5.05 X10*6/uL (4.20-5.50); Red Cell Distribution Width 14.2 % (11.0-16.0); White Blood Count 7.1 X10*3/uL (4.8-10.8)
[2023-06-27 12:09] LABS: Appearance Urine Clear; Color Urine Yellow; Glucose Urine UA Negative (Negative); Leukocyte Esterase Urine Trace (Negative); Nitrite Urine Negative (Negative); Specific Gravity - Urine 1.025 (1.005-1.025); UMIC TRIGGER UACC YES; Urine Blood Negative (Negative); Urine Ketones Negative (Negative); Urine Protein Negative (Neg-Trace)
[2023-06-27 12:12] LABS: Bacteria Urine 1+ (None Seen); Hyaline Casts Urine 0-2 /LPF (0-2); RBC Urine 0-2 /HPF (0-2); WBC Urine 0-5 /HPF (0-5)
[2023-06-27 12:22] LABS: Alanine Aminotransferase 35 U/L (0-31); Alkaline Phosphatase 76 U/L (39-117); Anion Gap 12 (12-20); Aspartate Amino Transferase 26 U/L (5-31); Bilirubin Total 0.3 mg/dL (0.0-1.0); Blood Urea Nitrogen 16 mg/dL (9-16); Calcium 9.2 mg/dL (8.4-10.2); Carbon Dioxide 26 mmol/L (22-29); Chloride 107 mmol/L (96-108); Cholesterol 251 mg/dL (<200); Estimated Glomerular Filt Rate > 60; Glucose Fasting 100 mg/dL (60-99); HDL Cholesterol 48 mg/dL (>40); LDL Cholesterol Calculated 176 mg/dL (<100); Potassium 4.2 mmol/L (3.3-5.1); Sodium 141 mmol/L (135-145); TSH reflex Free T4 3.25 uIU/mL (0.32-4.0); Total Protein 7.3 g/dL (6.5-8.0); Triglycerides 139 mg/dL (<150)
[2023-06-27 12:51] LABS: Erythrocyte Sedimentation Rate 7 MM/HR (0-20)
[2023-07-03 08:38] LABS: Transglutaminase IgA <1.0 U/mL
== END 2023-06-27 07:17 | disposition home or self-care (01) ==
LOC: HO.HMGCLDS 07:16
PROVIDERS: PCP Nurse Practitioner Family; Visit Provider Nurse Practitioner Family
DX: E78.5 Hyperlipidemia, unspecified (principal); L65.9 Nonscarring hair loss, unspecified; R19.5 Other fecal abnormalities
CPT/HCPCS: 36415; 80053; 80061; 81001; 81003; 84443; 85025; 85652; 86140; 86364

== ENCOUNTER 2023-06-28 07:34 | Outpatient (REF) | payer OTHER, SELFPAY ==
[2023-06-28 12:29] LABS: HBS Num1 130.03 mIU/mL (0-7.99); HBc Num1 0.22 S/CO (0.00-0.79); HBsAGNum1 0.39 S/CO (0.00-0.99); Hepatitis A Antibody IgM 0.15 Index (0-0.79); Hepatitis B Core Antibody Nonreactive (Nonreactive); Hepatitis B Surface Antigen Negative (Negative); ~HepC Num1 0.78 S/CO (0.00-0.79); ~Hepatitis A Antibody IgM Nonreactive (Nonreactive); ~Hepatitis B Surface Antibody REACTIVE (Nonreactive); ~Hepatitis C Antibody Nonreactive (Nonreactive)
[2023-06-30 22:28] LABS: TS Negative Control Passed; TS Panel A 0; TS Panel B 2; TS Positive Control Passed; TSpotTB Negative (Negative)
[2023-07-01 17:25] LABS: Rubeola IgG (Measles) <13.50 AU/mL
== END 2023-06-28 07:35 | disposition home or self-care (01) ==
LOC: HO.HMGCLDS 07:34
PROVIDERS: PCP Nurse Practitioner Family; Visit Provider Nurse Practitioner Family
DX: Z01.84 Encounter for antibody response examination (principal); Z11.1 Encounter for screening for respiratory tuberculosis; Z28.39 Other underimmunization status
CPT/HCPCS: 36415; 86481; 86704; 86706; 86709; 86735; 86762; 86765; 86787; 86803; 87340

== ENCOUNTER 2023-06-28 08:05 | Outpatient (AMB) | payer OTHER, SELFPAY ==
--- NOTE | 2023-06-28 08:08 | MHC.OFFWIV ---
Intake Vital Signs 06/28/23 08:10 Height 4 ft 11 in Weight 154 lb BMI 31.1 BP 124/82 Blood Pressure Location Rt brachial Position Sitting Pulse 78 Pulse Source Pulse Oximeter Pulse Oximetry (%) 98 Oxygen Delivery Method Room Air Intake Visit Reasons: EST/rash on right arm Intake Note: Patient here for rash on right arm that comes and goes for about a couple weeks. She states she doesnt go to bed with or wake up with it but happens throughout the day and wont last all day. Patient Tobacco Use Status: Never used Tobacco Allergies No Known Allergies Allergy (Verified 06/28/23 08:13) Do you need a note to return to daycare/school/sports/work: No HPI HPI Comments History of Present Illness Details This is a 62-year-old female who presents to the office today for sick visit. Patient complaining of intermittent rash to the right arm for the past several weeks. She noticed a pruritic rash to her right arm that appears to be intermittent in nature. She states she does not wake up with a rash but it seems to come on around 8-9 a.m. and then resolves priort to bedtime. She does report using a new laundry detergent prior to the onset of the rash. She occasionally gets a similar rash on her thighs. She denies any chest tightness, shortness of breath, or wheezing. She denies any throat swelling or trouble swallowing. [facility] Medical History Dyspnea KIRSTIN (obstructive sleep apnea) Pulmonary nodule Renal calculi Surgical History H/O breast biopsy Family History Daughter No problems noted. 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 Sexual orientation: Straight/Heterosexual Gender identity: Female Cognitive needs: No Hearing needs: No Vision needs: Yes Review of Systems Const All systems reviewed & are unremarkable except as noted in HPI and below Reports no additional complaints Eyes Reports no additional complaints ENT Reports no additional complaints Card Reports no additional complaints Resp Reports no additional complaints GI Reports no additional complaints Reports no additional complaints Musc Reports no additional complaints Skin/Breast Reports system reviewed and no additional complaints, except as documented Neuro Reports no additional complaints Psych Reports no additional complaints Endo Reports no additional complaints Ko/Lymph Reports no additional complaints Aller/Immun Reports no additional complaints Physical Exam Vital Signs: Last Vital Signs Pulse 78 06/28/23 08:10 BP 124/82 06/28/23 08:10 Pulse Ox 98 06/28/23 08:10 Oxygen Delivery Method Room Air 06/28/23 08:10 BMI result Body Mass Index 31.1 Const Other: Vital signs reviewed. Constitutional: Non-toxic appearing. No acute distress. Well-developed and well-nourished. HEENT: Normocephalic and atraumatic. Moist mucous membranes. No pharyngeal erythema or exudates. PERRL/EOMI. No conjunctival injection. Skin: Warm and dry. Several patches of a maculopapular erythematous rash located on right arm. There is another area of an erythematous maculopapular rash on the left arm. Neck: Full and painless range of motion. No cervical lymphadenopathy. Cardio: Regular rate and rhythm. No murmurs, gallops, or rubs. No lower extremity edema. No JVD. Pulmonary: No respiratory distress. No accessory muscle usage. Clear to auscultation bilaterally without wheezing, crackles, or rhonchi. Gastrointestinal: Soft, nontender, and nondistended in all 4 quadrants. Normoactive bowel sounds in all 4 quadrants. Genitourinary: No CVA tenderness. Musculoskeletal: Normal range of motion in joints throughout the body. No deformity or other signs of injury. Neuro: Alert and oriented x4. Cranial nerves 2-12 grossly intact. No focal deficits appreciated. Psych: Normal mood and affect. Assessment & Plan Assessment & Plan (1) Contact dermatitis: Code(s): L25.9 - Unspecified contact dermatitis, unspecified cause Plan 62-year-old female presenting to the office complaining of a pruritic rash to her right arm, left arm, and upper thighs in the setting of a new laundry detergent. On physical examination, patient has several patches of an erythematous maculopapular rash on her right arm and left arm. Patient's vital signs are stable, she is overall nontoxic appearing, and her physical exam is otherwise benign. history and physical most consistent with allergic/contact dermatitis. Patient sent home a triamcinolone cream. She was advised to discontinue use of the new laundry detergent. If symptoms persist, she was instructed to follow-up with her PCP for dermatology referral. Patient was instructed to proceed directly to the emergency room if she were to develop any signs of anaphylaxis including shortness of breath, chest tightness, wheezing, throat swelling, or trouble swallowing. Patient verbalizes her understanding and she is in agreement with the plan. Medications: New triamcinolone acetonide 0.5% 1 appl topical BID 15 grams 0RF Coding Level of Care Code Est Pt Level 3 (59887) Diagnoses Contact dermatitis L25.9
[2023-06-28 08:10] VITALS: BP 124/82; PULSE 78; O2SAT 98; BMI 31.1
== END 2023-06-28 08:30 | disposition home or self-care (01) ==
PROVIDERS: PCP Nurse Practitioner Family; Visit Provider Physician Assistant Medical
DX: L25.9 Unspecified contact dermatitis, unspecified cause (principal)
CPT/HCPCS: 99213

== ENCOUNTER 2023-07-11 09:50 | Outpatient (AMB) | payer OTHER, SELFPAY ==
--- NOTE | 2023-07-11 09:56 | AM.OFFVISNUR ---
Intake Intake Visit Reasons: MMR Intake Note: Injection #1 of 2 Allergies No Known Allergies Allergy (Verified 06/28/23 08:13) Immunizations M-M-R II (PF) 1,000-12,500 TCID50/0.5 mL subcutaneous solution Performing Provider: DENAE Clinton Performing Location: [facility] Administered by: Agustina Weinstein RN on 07/11/23 10:09 Dose Route Admin Location Dispensed Lot Number Expiration Date NDC Power House Control Room Operator 0.5 mL subcut Right Arm 0.5 mL [id number] 07/13/23 1148-3593-88 [employer] D VIS Given Date VIS Provided VIS Publication Date 07/11/23 Single Vaccine 21 Eligibility Eligibility Date Funding Source Not [facility] Eligible 07/11/23 Private Coding Assessment & Plan Assessment & Plan Orders: Orders MMR Immunization Today Z23 - Encounter for immunization, Z28.39 - Other underimmunization status
== END 2023-07-11 11:10 | disposition home or self-care (01) ==
LOC: HO.HMGC 09:50
PROVIDERS: PCP Nurse Practitioner Family; Visit Provider Nurse Practitioner Family
DX: Z23 Encounter for immunization (principal); Z28.39 Other underimmunization status
CPT/HCPCS: 90471; 90707

== ENCOUNTER 2023-08-08 09:52 | Outpatient (AMB) | payer OTHER, SELFPAY ==
--- NOTE | 2023-08-08 10:28 | AM.OFFVISNUR ---
Intake Intake Visit Reasons: MMR 2nd dose Intake Note: Pt arrived for MMR vaccine #2 of 2 Allergies No Known Allergies Allergy (Verified 06/28/23 08:13) Immunizations M-M-R II (PF) 1,000-12,500 TCID50/0.5 mL subcutaneous solution Performing Provider: VIKA Clinton Performing Location: [facility] Administered by: Deidra Marin RN on 08/08/23 10:28 Dose Route Admin Location Dispensed Lot Number Expiration Date NDC Event Marketing Manager 0.5 mL subcut Left Arm 0.5 mL [id number] 07/03/24 2756-8567-37 [employer] D VIS Given Date VIS Provided VIS Publication Date 08/08/23 Single Vaccine 21 Eligibility Eligibility Date Funding Source Not [facility] Eligible 08/08/23 Private Administration Comments: Diluent Lot [id number] Exp 05/19/2025 Coding Assessment & Plan Assessment & Plan Orders: Orders MMR Immunization Today Z23 - Encounter for immunization
== END 2023-08-08 11:42 | disposition home or self-care (01) ==
PROVIDERS: PCP Nurse Practitioner Family; Visit Provider Nurse Practitioner Family
DX: Z23 Encounter for immunization (principal)
CPT/HCPCS: 90471; 90707

== ENCOUNTER 2023-09-10 14:50 | Outpatient (AMB) | payer OTHER, SELFPAY ==
[2023-09-10 14:56] VITALS: BP 104/64; BMI 30.9
--- NOTE | 2023-09-10 14:56 | MHC.OFFVIS ---
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 She is doing well with no concerns. Attempting to eat a healthy diet with calcium and vitamin D and stays active with exercise. Currently not sexually active, reports in the past year and intermittent partner. Denies any vaginal dryness or irritation. STI testing offered; she accepts. Last pap smear; 2017. Last mammogram; March,. Cologard done. Denies any family history of breast, ovarian or colon cancer. [facility] Medical History Herpes Renal calculi Pulmonary nodule Dyspnea KIRSTIN (obstructive sleep apnea) Surgical History H/O breast biopsy Family History Daughter No problems noted. 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 Sexual orientation: Straight/Heterosexual Gender identity: Female Cognitive needs: No Hearing needs: No Vision needs: Yes Female Reproductive History Menstrual Total pregnancies: 2 Premature: 1 Number of Living Children: 1 Ab induced: 1 Date of last pap smear: 08/25/18 (neg pap and hpv) Date of Mammogram: 04/04/23 (Birad 1) Date of last Bone Density Screenin03/30/22 Review of Systems Const All systems reviewed & are unremarkable except as noted in HPI and below Reports as per HPI Eyes Reports no additional complaints ENT Reports no additional complaints Card Reports no additional complaints Resp Reports no additional complaints GI Reports as per HPI and Reports no additional complaints Reports as per HPI Musc Reports no additional complaints Skin/Breast Reports as per HPI Neuro Reports no additional complaints Psych Reports no additional complaints Endo Reports no additional complaints Ko/Lymph Reports no additional complaints Aller/Immun Reports no additional complaints Physical Exam Vital Signs: Last Vital Signs BP 104/64 09/10/23 14:56 BMI result Body Mass Index 30.9 Const General: cooperative, healthy appearing, no acute distress, well developed and alert Orientation/consciousness: patient oriented x3 HEENT Head: Yes normal to inspection Eyes General: appearance normal, both eyes and all related structures Neck Neck: Yes normal visual inspection Thyroid: Thyroid normal Chest Other: pendulous Chest palpation & inspection: normal inspection of the chest and other (no puckering, dimpling, peau de orange, retraction, discharge, masses) Breast/axilla inspection: normal inspection of the breasts Breast/axilla palpation: normal palpation of the breasts Resp Effort & Inspection: normal respiratory effort GI Inspection: Yes normal to inspection Palpation (GI): Soft to palpation Rectal Exam - Female: deferred General: Yes bladder normal to palpation External Female Exam: normal external appearance and normal appearance of the urethra Speculum Exam - Vagina: normal appearance of the vagina, normal palpation and normal vaginal discharge Speculum Exam - Cervix: normal appearance of the cervix and normal palpation Bimanual exam- vagina & uterus: normal bimanual exam, normal palpation, uterine size normal, bladder normal to palpation, normal palpation and non-tender Bimanual Exam- Adnexa, other: no masses Skin General skin exam: no rashes or lesions noted Rashes: no rashes Neuro General: patient oriented x3 Cognition (Neuro): normal cognition Extrem General: Yes normal to inspection Psych Attitude: cooperative Thought process: Normal thought process present Assessment & Plan Assessment & Plan (1) Encounter for well woman exam with routine gynecological exam: Code(s): Z01.419 - Encounter for gynecological examination (general) (routine) without abnormal findings Plan Discussed: Current recommendations for pap smears per ASCCP guidelines. Breast awareness, periodic self breast exams and yearly mammogram. Maintain a healthy lifestyle, well balanced diet including Calcium 1,200 mg and Vitamin D 600 IU daily, and routine exercise. Use of condoms for STI if indicated. Contact the office with any postmenopausal bleeding. Sign up for the patient portal if not already enrolled. All of her questions and concerns were addressed to the best of my ability. RTO in 1 year for annual crusher and blender operator exam. Orders: Orders HIV Ab/Ag Today Z20.2 - Contact with and (suspected) exposure to infections with a predominantly sexual mode of transmission CT NG by PCR Today Z20.2 - Contact with and (suspected) exposure to infections with a predominantly sexual mode of transmission Syphilis Screen Today Z20.2 - Contact with and (suspected) exposure to infections with a predominantly sexual mode of transmission Pap Smear Today Z01.419 - Encounter for gynecological examination (general) (routine) without abnormal findings Coding Level of Care Code Est Pt Prev Care 40-64y(10539) Diagnoses Encounter for well woman exam with routine gynecological exam Z01.419
== END 2023-09-10 15:26 | disposition home or self-care (01) ==
LOC: HO.HWS 14:50
PROVIDERS: PCP Nurse Practitioner Family; Visit Provider Advanced Practice Midwife
DX: Z01.419 Encounter for gynecological examination (general) (routine) without abnormal findings (principal)
CPT/HCPCS: 99396

== ENCOUNTER 2023-09-10 14:50 | Outpatient (REF) | payer OTHER, SELFPAY ==
[2023-09-14 04:33] LABS: HPV mRNA E6/E7 rflx Not Detected (Not Detected)
== END 2023-09-10 14:51 | disposition home or self-care (01) ==
LOC: HO.LNP 14:50
PROVIDERS: PCP Nurse Practitioner Family; Visit Provider Advanced Practice Midwife
DX: Z01.419 Encounter for gynecological examination (general) (routine) without abnormal findings (principal); Z11.51 Encounter for screening for human papillomavirus (HPV)
CPT/HCPCS: 87624; 88142

== ENCOUNTER 2023-09-10 15:33 | Outpatient (REF) | payer OTHER, SELFPAY ==
[2023-09-11 08:05] LABS: Syphilis Screen Nonreactive (Nonreactive)
[2023-09-11 08:15] LABS: HIV AB/AG Nonreactive (Nonreactive); HIV Num 1 0.05 S/CO (0.00-0.99)
[2023-09-11 10:52] LABS: CT PCR NOT DETECTED (Not Detect.); NG PCR NOT DETECTED (Not Detect.)
== END 2023-09-10 15:34 | disposition home or self-care (01) ==
LOC: HO.LAB 15:33
PROVIDERS: PCP Nurse Practitioner Family; Visit Provider Advanced Practice Midwife
DX: Z11.4 Encounter for screening for human immunodeficiency virus [HIV] (principal); Z20.2 Contact with and (suspected) exposure to infections with a predominantly sexual mode of transmission
CPT/HCPCS: 0353U; 86780; 87389

== ENCOUNTER 2023-09-25 08:39 | Outpatient (AMB) | payer OTHER, SELFPAY ==
--- NOTE | 2023-09-25 08:41 | A.OFFPC_ITS ---
Vital Signs 09/25/23 08:44 Height 4 ft 11 in Weight 185 lb BMI 37.4 BP 116/78 Blood Pressure Location Rt brachial Position Sitting Pulse 72 Pulse Source Pulse Oximeter Pulse Oximetry (%) 100 Oxygen Delivery Method Room Air Intake Visit Reasons: 6 MON FUP+ NEEDS PHQ9/THRIVE Intake Note: Patient is here for follow up but did not get labs done. Allergies No Known Allergies Allergy (Verified 09/10/23 14:56) Tobacco use date assessed: 03/26/23 HPI 6 MON FUP+ NEEDS PHQ9/THRIVE HPI Details HTN: Blood pressure is stable in office and at home. Denies chest pain, shortness of breath, headache, dizziness, and blurred vision. Dyslipidemia: On rosuvastatub 40mg. Pt is working on her diet. Labs have been ordered, encouraged pt to have these drawn. [facility] Medical History Herpes Renal calculi Pulmonary nodule Dyspnea KIRSTIN (obstructive sleep apnea) Surgical History H/O breast biopsy Family History Daughter No problems noted. 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 93047 - PHQ-9 Billing: Patient declined-do not bill Source: Developed by Drs. Brad Larry, Serenity Cochran, Simeon Morgan and colleagues, with an educational carlito from [employer] Thrive Questionnaire Date Thrive assessed: 03/21/22 AUDIT C Alcohol Use Questionnaire (AUDIT-C) 1. How often do you have a drink containing alcohol?: Never 3. How often do you have six or more drinks on one occasion?: Never Total Score: 0 Score Reviewed/Action Taken: Yes SARAH-7 AMB Questionnaire SARAH-7 Date SARAH - 7 assessed: 09/25/23 Source: Developed by Drs. Brad Larry, Serenity Cochran, Simeon Morgan and colleagues, with an educational carlito from [employer] SARAH-7 Assessment Billing SARAH-7 Assessment Tool: pt declined-do not bill Review of Systems Const Reports as per HPI Physical exam (Primary Care) Vital Signs: Last Vital Signs Pulse 72 09/25/23 08:44 BP 116/78 09/25/23 08:44 Pulse Ox 100 09/25/23 08:44 Oxygen Delivery Method Room Air 09/25/23 08:44 BMI result Body Mass Index 37.4 Tobacco/Smoking Status: Tobacco use Status Tobacco use date assessed 03/26/23 09/25/23 08:44 Patient Tobacco Use Status Never used Tobacco 09/25/23 08:44 e-Cigarette/Vaping Use Never Used 09/25/23 08:44 Thrive Assessment: Date of Thrive Assessment Date Thrive assessed 03/21/22 09/25/23 08:44 Const General: cooperative Nutritional Appearance: obese Orientation/consciousness: patient oriented x3 Resp Effort & Inspection: normal respiratory effort Auscultation: clear to auscultation bilaterally Cardio Rate: regular rate Rhythm: regular rhythm Heart sounds: S1 normal heart sound present and S2 normal heart sound present Neuro General: patient oriented x3 Extrem Right lower extremity: no edema Left lower extremity: no edema Psych Appearance: grossly normal Mental Status: mental status grossly normal Speech and movement: Normal speech and movement present Affect: normal affect Attitude: cooperative Thought process: Normal thought process present Thought content: Normal thought content present Insight: Good insight present (Psych) Judgement: Good judgement present (Psych) Assessment and Plan Assessment & Plan (1) Dyslipidemia: Code(s): E78.5 - Hyperlipidemia, unspecified Plan: Labs already ordered (2) HTN (hypertension): Code(s): I10 - Essential (primary) hypertension Plan: Labs already ordered Plan The patient agreed to the use of a medical operations supervisor for this encounter. Scribed for VIKA Brown by marlee Ibarra scribe, on 09/25/2023 at 09:05 EST. Coding Level of Care Code Est Pt Level 3 (50976) Diagnoses Dyslipidemia E78.5 HTN (hypertension) I10
[2023-09-25 08:44] VITALS: BP 116/78; PULSE 72; O2SAT 100; BMI 37.4
== END 2023-09-25 09:16 | disposition home or self-care (01) ==
PROVIDERS: PCP Nurse Practitioner Family; Visit Provider Nurse Practitioner Family
DX: E78.5 Hyperlipidemia, unspecified (principal); I10 Essential (primary) hypertension
CPT/HCPCS: 99213

== ENCOUNTER 2023-10-12 07:16 | Outpatient (REF) | payer OTHER, SELFPAY | END 2023-10-12 07:17 | disposition home or self-care (01) | LOC: HO.HMGCLDS 07:16 | PROVIDERS: PCP Nurse Practitioner Family; Visit Provider Nurse Practitioner Family | DX: Z00.00 Encounter for general adult medical examination without abnormal findings (principal); Z13.220 Encounter for screening for lipoid disorders; Z13.29 Encounter for screening for other suspected endocrine disorder | CPT/HCPCS: 36415; 80053; 80061; 81001; 84443; 85025; 87086 ==

== ENCOUNTER 2024-04-02 12:44 | Outpatient (AMB) | payer OTHER, SELFPAY ==
--- NOTE | 2024-04-02 12:54 | A.OFFPC_ITS ---
Vital Signs 04/02/24 12:57 Height 4 ft 11 in Weight 151 lb BMI 30.5 BP 124/82 Blood Pressure Location Lt brachial Position Sitting Pulse 99 Pulse Source Pulse Oximeter Pulse Oximetry (%) 96 Oxygen Delivery Method Room Air Intake Visit Reasons: Annual PE Intake Note: pt is here for her annual PE. Mammogram 04/04/23. Pap 09/11/23. Colonoscopy never done. Does cologuard. Does not remember when done Allergies No Known Allergies Allergy (Verified 04/02/24 13:19) Medication List - Last Reconciled 04/02/24 by LAURY Edward albuterol sulfate 90 mcg/actuation (Ventolin HFA) 2 puffs inhalation Q4-6H PRN budesonide-formoterol 160-4.5 mcg/actuation (Symbicort) 2 puffs inhalation BID 30 days calcium carbonate-vitamin D3 600 mg-10 mcg (400 unit) (Calcium 600 with Vitamin D3) 1 tab PO BID 30 days ezetimibe 10 mg PO DAILY hydrocortisone 2.5% 1 appl topical BID PRN ketoconazole 2% 1 appl topical DAILY prednisone 60 mg (3 x 20 mg) PO DAILY rosuvastatin 40 mg PO DAILY triamcinolone acetonide 0.5% 1 appl topical BID valacyclovir 2,000 mg (2 x 1 gram) PO ONCE PRN 1 day Tobacco use date assessed: 04/02/24 Dental Screening Dental Screen Date: 04/02/24 Did you have a dental visit in the last 12 months?: No Did you have a dental problem in the last 6 months where you did not have access to dental care?: No Was dental information given to patient?: Patient has dentist HPI HPI Comments History of Present Illness Details Patient is a 63-year-old female in today for physical exam who I am meeting for the 1st time. Patient is up-to-date with Tdap last administered 1DocWay 2021. Patient declines colonoscopy, does utilize Cologuard, next Cologuard due 2024 She is due for mammogram, patient has scheduled appointment for mammogram in 2 weeks. Patient is due for bone density scan. Previous scan 2 months prior demonstrated osteopenia. Patient utilizing calcium and vitamin-D supplements. Will redraw. 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 Her next appointment is in 6 months. She has a past medical history significant for: Hypertension: Controlled at today's appointment. Patient not using medication for this. Reactive airway disease: Utilizes albuterol infrequently, 1-2 times per month. Using Symbicort daily with good effect. Osteopenia: Utilizing calcium and vitamin-D supplements. Tinea pedis: Utilizing ketoconazole 2% p.r.n. with good effect. Hyperlipidemia/hypertriglyceridemia: Patient takes ezetimibe 10 mg p.o. daily as well as rosuvastatin for 40 mg p.o. daily. Patient admits she does not remember to take this medication every day. Will draw fasting labs. [facility] Medical History Herpes Renal calculi Pulmonary nodule Dyspnea KIRSTIN (obstructive sleep apnea) Surgical History H/O breast biopsy Family History Daughter No problems noted. 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 1. Little interest or pleasure in doing things: not at all 2. Feeling down, depressed, or hopeless: not at all 3. Trouble falling or staying asleep, or sleeping too much: not at all 4. Feeling tired or having little energy: not at all 5. Poor appetite or overeating: not at all 6. Feeling bad about yourself - or that you are a failure or have let yourself or your family down: not at all 7. Trouble concentrating on things, such as reading the newspaper or watching television: not at all 8. Moving or speaking so slowly that other people could have noticed. Or the opposite - being so fidgety or restless that you have been moving around a lot more than usual: not at all 9. Thoughts that you would be better off or of hurting yourself in some way: not at all Total score: 0 Depression Screening Interpretation: Negative Depression Screening Done: Yes 76214 - PHQ-9 Billing: Yes Source: Developed by Drs. Brad Larry, Serenity Cochran, Simeon Morgan and colleagues, with an educational carlito from [employer]. Thrive Questionnaire Date Thrive assessed: 04/02/24 I am a: Patient What is your living situation today?: I have a steady place to live Within the past 12 months, did the food you bought not last and you didn't have the money to get more?: Sometimes True Within the past 12 months, did you worry whether your food would run out before you got money to buy more?: Sometimes True Do you have trouble paying for medicines?: No Do you have trouble getting transportation to medical appointments?: No Do you have trouble paying your heating and electricity bill?: No Do you have trouble taking care of your child, family member or friend?: No Do you have trouble with day-to-day activities such as bathing, preparing meals, shopping, managing finances, etc.?: No Are you currently unemployed and looking for a job?: No Are you interested in more education?: Yes Currently or been in a relationship where the following occur: No concerns reported THRIVE Score: 2 AUDIT C Alcohol Use Questionnaire (AUDIT-C) 1. How often do you have a drink containing alcohol?: Never Total Score: 0 SARAH-7 AMB Questionnaire SARAH-7 Date SARAH - 7 assessed: 04/02/24 Feeling nervous, anxious, or on edge: 0 = Not at all Not being able to stop or control worryin = Not at all Worrying too much about different things: 0 = Not at all Trouble relaxin = Not at all Being so restless that it is hard to sit still: 0 = Not at all Becoming easily annoyed or irritable: 0 = Not at all Feeling afraid as if something awful might happen: 0 = Not at all Total SARAH-7 score (0-4 normal; 5-9 mild; 10-14 moderate; 15-21 severe): 0 Source: Developed by Drs. Brad Larry, Serenity Cochran, Simeon Morgan and colleagues, with an educational carlito from [employer]. SARAH-7 Assessment Billing SARAH-7 Assessment Tool: SARAH-7 Assessment 51327 Review of Systems Const All systems reviewed & are unremarkable except as noted in HPI and below Physical exam (Primary Care) Care Plan Goal for BP management: Patient's blood pressure is controlled. Tobacco/Smoking Status: Tobacco use Status Tobacco use date assessed 03/26/23 04/02/24 12:54 Patient Tobacco Use Status Never used Tobacco 04/02/24 12:54 e-Cigarette/Vaping Use Never Used 04/02/24 12:54 Depression Screening Interpretation: Negative Thrive Assessment: Date of Thrive Assessment Date Thrive assessed 03/21/22 04/02/24 12:54 Currently or been in a relationship where the following occur: No concerns reported Advance Care Planning discussion: Completed/Scanned Date of discussion: 04/02/24 Forms completed: Health Care Proxy and MOLST Time spent: 16-45 minutes Actual minutes spent: 18 Const General: cooperative and no acute distress Orientation/consciousness: patient oriented x3 HENMT Head: Yes normal to inspection and Yes normocephalic Ears: TM's normal bilaterally Face and sinus: Yes normal facial exam Eyes General: appearance normal, both eyes and all related structures Pupils: Equal, round and reactive pupils present Direct Ophthalmoscopy: normal light reflex and no photophobia Neck Neck: Yes normal visual inspection Thyroid: Thyroid normal Carotids: normal carotid upstroke Lymphatic: no lymphadenopathy noted Resp Effort & Inspection: normal respiratory effort Auscultation: clear to auscultation bilaterally Cardio Rate: regular rate Rhythm: regular rhythm Heart sounds: S1 normal heart sound present and S2 normal heart sound present Peripheral pulses: Peripheral pulses 2+ throughout GI Inspection: Yes normal to inspection General: Yes no CVA tenderness Back/Spine/Pelvis Back: no CVA tenderness Skin General skin exam: no rashes or lesions noted Neuro General: patient oriented x3 Cranial nerves: Yes Equal, round and reactive pupils present Cognition (Neuro): normal cognition Gait exam (Neuro): Normal gait present Motor exam (neuro): 5/5 motor strength present throughout Romberg Test: Negative Extrem General: Yes normal to inspection Psych Thought content: Normal thought content present Insight: Good insight present (Psych) Judgement: Good judgement present (Psych) Assessment and Plan Assessment & Plan (1) Physical exam: Comment: Patient is a 63-year-old female in today for physical exam who I am meeting for the 1st time. Patient is up-to-date with Tdap last administered 1DocWay 2021. Patient declines colonoscopy, does utilize Cologuard, next Cologuard due 2024 She is due for mammogram, patient has scheduled appointment for mammogram in 2 weeks. Patient is due for bone density scan. Previous scan 2 months prior demonstrated osteopenia. Patient utilizing calcium and vitamin-D supplements. Will redraw. 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 Her next appointment is in 6 months. She has a past medical history significant for: Hypertension: Controlled at today's appointment. Patient not using medication for this. Reactive airway disease: Utilizes albuterol infrequently, 1-2 times per month. Using Symbicort daily with good effect. Osteopenia: Utilizing calcium and vitamin-D supplements. Tinea pedis: Utilizing ketoconazole 2% p.r.n. with good effect. Hyperlipidemia/hypertriglyceridemia: Patient takes ezetimibe 10 mg p.o. daily as well as rosuvastatin for 40 mg p.o. daily. Patient admits she does not remember to take this medication every day. Will draw fasting labs. Code(s): Z00.00 - Encounter for general adult medical examination without abnormal findings Plan: draw labs Plan will follow up with labs. Orders: Orders Vitamin D 25-OH (D2 and D3) Today Z13.21 - Encounter for screening for nutritional disorder Complete Blood Count Auto Diff Today Z13.0 - Encounter for screening for diseases of the blood and blood-forming organs and certain disorders involving the immune mechanism Lipid Panel Today Z13.220 - Encounter for screening for lipoid disorders Vitamin B6 Today Z13.21 - Encounter for screening for nutritional disorder Vitamin B12 Today Z13.21 - Encounter for screening for nutritional disorder UA CC w/rflx Micro + Cult Today Z13.89 - Encounter for screening for other disorder TSH reflex Free T4 Today Z13.29 - Encounter for screening for other suspected endocrine disorder Comprehensive Met. Panel Today Z91.89 - Other specified personal risk factors, not elsewhere classified Medications: Refilled triamcinolone acetonide 0.5% 1 appl topical BID 15 grams 0RF Coding Level of Care Code Est Pt Prev Care 40-64y(60385) Diagnoses Physical exam Z00.00 Additional Codes SARAH-7 Assessment Billing - SARAH-7 Assessment Tool: SARAH-7 Assessment 64491 ([id number]) Vital Signs *Quality* - Advance Care Planning discussion: Completed/Scanned ([id number]) Vital Signs *Quality* - Time spent: 16-45 minutes ([id number]) Time Spent (min) 41
[2024-04-02 12:57] VITALS: BP 124/82; PULSE 99; O2SAT 96; BMI 30.5
== END 2024-04-02 13:55 | disposition home or self-care (01) ==
LOC: HO.HMGC 12:44
PROVIDERS: PCP Nurse Practitioner Family; Visit Provider Nurse Practitioner Primary Care
DX: Z00.00 Encounter for general adult medical examination without abnormal findings (principal)
CPT/HCPCS: 1123F; 99396; 99497

== ENCOUNTER 2024-04-04 06:47 | Outpatient (REF) | payer OTHER, SELFPAY ==
[2024-04-04 11:17] LABS: MANUAL DIFF FLAG NO
[2024-04-04 11:22] LABS: Basophils Percent Auto 0.6 % (0-2); Eosinophils Absolute Auto 0.1 X10*3/uL (0.0-0.4); Eosinophils Percent Auto 1.4 % (0-4); Hematocrit 46.2 % (37.0-47.0); Hemoglobin 14.3 g/dl (12.0-16.0); Imm Gran Abs Auto 0.02 X10*3/uL (0.00-0.03); Imm Gran Pct Auto 0.3 % (0.0-0.4); Lymphocytes Absolute Auto 2.8 X10*3/uL (1.2-4.9); Lymphocytes Percent Auto 44.3 % (20-40); Mean Corpuscular Hemoglobin 27.6 pg (27.0-33.0); Mean Corpuscular Volume 89.2 fL (80.0-98.0); Mean Platelet Volume 12.3 fL (9.4-12.3); Monocytes Absolute Auto 0.4 X10*3/uL (0.1-1.2); Monocytes Percent Auto 6.2 % (2-11); Neutrophils Percent Auto 47.2 % (45-73); Platelet Count 249 X10*3/uL (160-400); Red Blood Count 5.18 X10*6/uL (4.20-5.50); Red Cell Distribution Width 14.2 % (11.0-16.0); White Blood Count 6.3 X10*3/uL (4.8-10.8)
[2024-04-04 11:25] LABS: Appearance Urine Cloudy; Color Urine Yellow; Glucose Urine UA Negative (Negative); Leukocyte Esterase Urine Moderate (2+) (Negative); Nitrite Urine Negative (Negative); PH 7.5 (5.0-9.0); UMIC TRIGGER UACC YES; Urine Blood Negative (Negative); Urine Ketones Negative (Negative); Urine Protein Negative (Neg-Trace)
[2024-04-04 11:30] LABS: Bacteria Urine 4+ (None Seen); Hyaline Casts Urine 0-2 /LPF (0-2); RBC Urine 0-2 /HPF (0-2); UACC Culture Trigger YES; WBC Urine 21-50 /HPF (0-5)
[2024-04-04 11:41] LABS: Alanine Aminotransferase 24 U/L (0-31); Albumin Level 3.9 g/dL (3.5-5.0); Alkaline Phosphatase 76 U/L (39-117); Anion Gap 13 (12-20); Aspartate Amino Transferase 19 U/L (5-31); Bilirubin Total 0.2 mg/dL (0.0-1.0); Blood Urea Nitrogen 15 mg/dL (9-16); Calcium 9.3 mg/dL (8.4-10.2); Carbon Dioxide 28 mmol/L (22-29); Chloride 107 mmol/L (96-108); Cholesterol 237 mg/dL (<200); Estimated Glomerular Filt Rate > 60; Glucose Random 98 mg/dL (60-115); HDL Cholesterol 45 mg/dL (>40); LDL Cholesterol Calculated 159 mg/dL (<100); Potassium 4.5 mmol/L (3.3-5.1); Sodium 143 mmol/L (135-145); Total Protein 7.3 g/dL (6.5-8.0); Triglycerides 166 mg/dL (<150)
[2024-04-04 11:57] LABS: TSH reflex Free T4 2.63 uIU/mL (0.32-4.0)
[2024-04-04 11:58] LABS: Vitamin B12 252 pg/mL (200-900)
[2024-04-09 15:28] LABS: Vitamin D 25-OH, D2 <4 ng/mL; Vitamin D 25-OH, D3 38 ng/mL; Vitamin D 25-OH, Total 38 ng/mL (30-100)
[2024-04-09 15:39] LABS: Vitamin B6 6.9 ng/mL (2.1-21.7)
== END 2024-04-04 06:48 | disposition home or self-care (01) ==
LOC: HO.HMGCLDS 06:47
PROVIDERS: PCP Nurse Practitioner Primary Care; Visit Provider Nurse Practitioner Primary Care
DX: Z13.21 Encounter for screening for nutritional disorder (principal); Z13.0 Encounter for screening for diseases of the blood and blood-forming organs and certain disorders involving the immune mechanism; Z13.220 Encounter for screening for lipoid disorders; Z91.89 Other specified personal risk factors, not elsewhere classified; Z13.29 Encounter for screening for other suspected endocrine disorder; R82.90 Unspecified abnormal findings in urine
CPT/HCPCS: 36415; 80053; 80061; 81001; 82306; 82607; 84207; 84443; 85025; 87086

== ENCOUNTER 2024-04-15 15:48 | Outpatient (REF) | payer OTHER, SELFPAY | END 2024-04-15 15:49 | disposition home or self-care (01) | LOC: HO.MAMMO 15:48 | PROVIDERS: PCP Nurse Practitioner Family; Visit Provider Nurse Practitioner Family | DX: Z12.31 Encounter for screening mammogram for malignant neoplasm of breast (principal) | CPT/HCPCS: 77063; 77067 ==

== ENCOUNTER → 2024-04-15 16:00 | Outpatient (BNV) | payer OTHER, SELFPAY | PROVIDERS: PCP Nurse Practitioner Family; Visit Provider Radiology Diagnostic Radiology | DX: Z12.31 Encounter for screening mammogram for malignant neoplasm of breast (principal) | CPT/HCPCS: 77063; 77067 ==

== ENCOUNTER 2024-11-11 08:14 | Outpatient (AMB) | payer OTHER, SELFPAY ==
--- NOTE | 2024-11-11 08:17 | MHC.OFFVIS ---
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 Currently sexually active with bottle labeler partner every few months. Denies any vaginal dryness or irritation. STI testing offered; she declines. Attempting to eat a healthy diet with calcium and vitamin D and stays active with exercise. Last pap smear; 2022. Last mammogram; 2023. She reports the Cologuard is UTD. Denies any family history of breast, ovarian or colon cancer. [facility] Medical History Herpes Renal calculi Pulmonary nodule Dyspnea KIRSTIN (obstructive sleep apnea) Surgical History H/O breast biopsy Family History Daughter No problems noted. 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 Sexual orientation: Straight/Heterosexual Gender identity: Female Cognitive needs: No Hearing needs: No Vision needs: Yes Female Reproductive History Menstrual Menopause type: natural Total pregnancies: 2 Full term: 1 Number of Living Children: 1 Ab induced: 1 Date of last pap smear: 09/10/23 (neg pap and hpv) Date of Mammogram: 04/15/24 (Birad 1) Date of last Bone Density Screenin03/30/22 Review of Systems Const All systems reviewed & are unremarkable except as noted in HPI and below Reports as per HPI Eyes Reports no additional complaints ENT Reports no additional complaints Card Reports no additional complaints Resp Reports no additional complaints GI Reports as per HPI and Reports no additional complaints Reports as per HPI Musc Reports no additional complaints Skin/Breast Reports as per HPI Neuro Reports no additional complaints Psych Reports no additional complaints Endo Reports no additional complaints Ko/Lymph Reports no additional complaints Aller/Immun Reports no additional complaints Physical Exam Const General: cooperative, healthy appearing, no acute distress, well developed and alert Orientation/consciousness: patient oriented x3 HEENT Head: Yes normal to inspection Eyes General: appearance normal, both eyes and all related structures Neck Neck: Yes normal visual inspection Thyroid: Thyroid normal Chest Chest palpation & inspection: normal inspection of the chest and other (no puckering, dimpling, peau de orange, retraction, discharge, masses) Breast/axilla inspection: normal inspection of the breasts Breast/axilla palpation: normal palpation of the breasts Resp Effort & Inspection: normal respiratory effort GI Inspection: Yes normal to inspection Palpation (GI): Soft to palpation Rectal Exam - Female: deferred General: Yes bladder normal to palpation External Female Exam: normal external appearance and normal appearance of the urethra Speculum Exam - Vagina: normal appearance of the vagina, normal palpation and normal vaginal discharge Speculum Exam - Cervix: normal appearance of the cervix and normal palpation Bimanual exam- vagina & uterus: normal bimanual exam, normal palpation, uterine size normal, bladder normal to palpation, normal palpation and non-tender Bimanual Exam- Adnexa, other: no masses Skin General skin exam: no rashes or lesions noted Rashes: no rashes Neuro General: patient oriented x3 Cognition (Neuro): normal cognition Extrem General: Yes normal to inspection Psych Attitude: cooperative Thought process: Normal thought process present Assessment & Plan Assessment & Plan (1) Encounter for well woman exam with routine gynecological exam: Code(s): Z01.419 - Encounter for gynecological examination (general) (routine) without abnormal findings Category: Medical Plan Discussed: Current recommendations for pap smears per ASCCP guidelines. Breast awareness, periodic self breast exams and yearly mammogram. Maintain a healthy lifestyle, well balanced diet including Calcium 1,200 mg and Vitamin D 600 IU daily, and routine exercise. Offered BRCA screening referral, she is unsure if she has a testing 5-10 years ago, will consider and call the office if desires testing. PT referral for urinary incontinence, booklet given. Contact the office with any postmenopausal bleeding. Consider colonoscopy screening, advised to speak with her PCP further. Patient verbalizes understanding and agrees to the plan of care. She was given opportunity to ask questions and all questions were answered to the best of my ability. 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 This note is constructed using voice recognition software. While every effort has been made to ensure accuracy, roofing layer errors may have been included. Coding Level of Care Code Est Pt Prev Care 40-64y(84030) Diagnoses Encounter for well woman exam with routine gynecological exam Z01.419
[2024-11-11 08:20] VITALS: BP 112/76; BMI 31.5
== END 2024-11-11 08:57 | disposition home or self-care (01) ==
PROVIDERS: PCP Nurse Practitioner Family; Visit Provider Advanced Practice Midwife
DX: Z01.419 Encounter for gynecological examination (general) (routine) without abnormal findings (principal)
CPT/HCPCS: 99396; 99459

== ENCOUNTER → 2024-11-11 08:14 | Outpatient (BNVA) | payer OTHER, SELFPAY | PROVIDERS: PCP Nurse Practitioner Family; Visit Provider Advanced Practice Midwife | DX: Z01.419 Encounter for gynecological examination (general) (routine) without abnormal findings (principal); N39.3 Stress incontinence (female) (male) | CPT/HCPCS: 99396; 99459 ==

== ENCOUNTER 2024-12-15 10:54 | Outpatient (REF) | payer OTHER, SELFPAY ==
[2024-12-18 17:14] LABS: TS Negative Control Passed; TS Panel A 0; TS Panel B 1; TS Positive Control Passed; TSpotTB Negative (Negative)
== END 2024-12-15 10:55 | disposition home or self-care (01) ==
LOC: HO.HMGCLDS 10:54
PROVIDERS: PCP Nurse Practitioner Family; Visit Provider Nurse Practitioner Family
DX: Z11.1 Encounter for screening for respiratory tuberculosis (principal)
CPT/HCPCS: 36415; 86481

== ENCOUNTER 2025-07-07 07:36 | Outpatient (REF) | payer OTHER, SELFPAY | END 2025-07-07 07:37 | disposition home or self-care (01) | LOC: HO.MAMMO 07:36 | PROVIDERS: PCP Nurse Practitioner Family; Visit Provider Internal Medicine | DX: Z12.31 Encounter for screening mammogram for malignant neoplasm of breast (principal) | CPT/HCPCS: 77063; 77067 ==

== ENCOUNTER → 2025-07-07 07:45 | Outpatient (BNV) | payer OTHER, SELFPAY | PROVIDERS: PCP Nurse Practitioner Family; Visit Provider Internal Medicine | DX: Z12.31 Encounter for screening mammogram for malignant neoplasm of breast (principal) | CPT/HCPCS: 77063; 77067 ==